=== PATIENT | male | born 1980 | race Caucasian/White ===

== ENCOUNTER 2021-08-22 03:26 | Emergency (ER) | payer OTHER ==
[~2021-08-22] VITALS: Ht 182.9 cm; Wt 95.3 kg
[2021-08-22] MEDS ORDERED: CLONIDINE HCL 0.2 MG TABLET PO ONE (04:00)
[2021-08-22] MEDS ORDERED: FLUORESCEIN SODIUM 1 MG STRIP OP ONE (04:00)
[2021-08-22] MEDS ORDERED: TETRACAINE HCL 0.5% OPHT DROP 2 ML BOTTLE OP ONE (04:00)
[2021-08-22] MEDS ORDERED: FLUORESCEIN SODIUM 1 MG STRIP ONE (04:01)
[2021-08-22] MEDS ORDERED: TETRACAINE HCL 0.5% OPHT DROP 2 ML BOTTLE ONE (04:02)
--- NOTE | 2021-08-22 04:02 | NUR ---
Patient ambulatory to ED rm 2A. Complaint Right eye lid swelling,painful x 3 day given topical antibiotic withoutimprovement. Elevated BP. Dr Love rawls.
[2021-08-22] MEDS ORDERED: CLONIDINE HCL 0.2 MG TABLET ONE (04:04)
[2021-08-22] MEDS ORDERED: ERYT250C69 PO (04:27)
[2021-08-22] MEDS ORDERED: CLON0.1T PO (04:27)
--- NOTE | 2021-08-22 04:38 | NUR ---
Medicated as directed. MD advised patient may be discharged to home when systolic BP less than 160.
--- NOTE | 2021-08-22 05:50 | NUR ---
Patient discharged to home in stable condition. Denies any pain/discomfort. Denies any CP/pressure/palpitations. No N/V/D. Written and verbal after care instructions given. Patient verbalizes understanding of instructions. Stressed follow up or return to ER for worsening s/s. Steady gait. Picked up by .
[2021-08-22 06:15] VITALS: BP 152/90
== END 2021-08-22 05:55 | disposition home or self-care (01) ==
LOC: ER 03:30
DX: H00.019 Hordeolum externum unspecified eye, unspecified eyelid (principal); I10 Essential (primary) hypertension; Z88.0 Allergy status to penicillin; Z88.2 Allergy status to sulfonamides
CPT/HCPCS: A4663